=== PATIENT | male | born 1965 | race Caucasian/White ===

== ENCOUNTER 2021-01-12 02:41 | Observation (INO) ==
[2021-01-12 03:01] VITALS: TEMP 98.1
[2021-01-12] MEDS ORDERED: Ondansetron 4 MG/2 ML VIAL IVP ONE (03:07)
[2021-01-12 03:20] LABS: Basophils # 0.1 K/mcL (0.0-0.2); Basophils % 0.4 %; Eosinophils # 0.1 K/mcL (0.0-0.6); Eosinophils % 0.9 %; Hematocrit 46.8 % (37.5-50.1); Hemoglobin 16.1 g/dL (12.9-16.9); Immature Granulocytes % 0.7 % (0-4); Lymphocytes # 1.4 K/mcL (0.6-4.6); Lymphocytes % 9.8 %; Mean Corpuscular HGB Conc 34.4 g/dL (31.6-35.5); Mean Corpuscular Hemoglobin 30.8 pg (28.0-33.3); Mean Corpuscular Volume 89.5 fL (83.0-100.0); Monocytes # 1.2 K/mcL (0.0-1.3); Monocytes % 8.3 %; Neutrophils # 11.2 K/mcL (1.6-8.9); Platelet Count 279 K/mcL (140-400); Red Blood Count 5.23 M/mcL (4.19-5.50); Red Cell Distribution Width 12.6 % (11.5-14.5); Segmented Neutrophils % 79.9 %
[2021-01-12 03:45] LABS: BUN/Creatinine Ratio 9 (6-26); Blood Urea Nitrogen 11 mg/dL (6-20); Calcium 9.4 mg/dL (8.6-10.3); Carbon Dioxide 20 mEq/L (23-29); Chloride 101 mEq/L (98-107); Glucose 135 mg/dL (70-105); Osmolality,Calculated 275 (280-300); Potassium 3.5 mEq/L (3.5-5.1); Sodium 132 mEq/L (136-145); Troponin I < 0.03 ng/mL (< 0.04); eGFR For African Americans > 60 (> 60); eGFR For Non-African Americans > 60 (> 60)
[2021-01-12] MEDS ORDERED: 0.9 % Sodium Chloride 1,000 ML IV ONE (04:05)
[2021-01-12] MEDS ORDERED: Morphine Sulfate 2 MG/ML SYRINGE IVP ONE (04:05)
[2021-01-12] MEDS ORDERED: Acetaminophen 325 MG TABLET PO PRN (06:38)
[2021-01-12] MEDS ORDERED: Naloxone 0.4 MG/ML INJ IVP PRN (06:38)
[2021-01-12] MEDS ORDERED: Ondansetron 4 MG/2 ML VIAL IVP PRN (06:38)
[2021-01-12] MEDS ORDERED: 0.9 % Sodium Chloride 1,000 ML IVC SCH (06:45)
[2021-01-12 07:48] VITALS: BP 123/76; PULSE 79; O2SAT 92
[2021-01-12] MEDS ORDERED: 0.9 % Sodium Chloride 1,000 ML IVC ONE (08:06)
[2021-01-12 08:24] LABS: Bilirubin,Urine Negative (Negative); Blood,Urine Negative (Negative); Clarity,Urine Clear (Clear); Color,Urine Light-Yellow (Yellow); Glucose,Urine (UA) Normal (Normal); Ketones,Urine Negative (Negative); Leukocyte Esterase,Urine Negative (Negative); Nitrite,Urine Negative (Negative); Protein,Urine Trace mg/dL (Neg-Trace); Urobilinogen,Urine Normal (Normal)
[2021-01-12 09:15] LABS: INR 1.3; Prothrombin Time 14.5 Seconds (9.4-12.1)
[2021-01-12 09:41] LABS: Influenza A PCR Negative (Negative); Influenza B PCR Negative (Negative); Resp. Syncytial Virus PCR Negative (Negative)
[2021-01-12 09:42] LABS: SARS-CoV-2 by PCR (In House) Negative (Negative)
== END 2021-01-12 09:46 | disposition short-term general hospital (02) ==
LOC: EMEROOARM 02:41 → CDU 02:41 → SUATTDRO 06:12 → CDU 06:56
PROVIDERS: ADMIT Internal Medicine; ATTEND Internal Medicine